=== PATIENT | male | born 1945 | race Caucasian/White ===

== ENCOUNTER 2016-11-02 02:16 | Emergency (ER) | payer MEDICARE, OTHER ==
[~2016-11-02 02:16] MED LIST: ASPI-973 PO; ATOR10TA66 PO; CARV6.252 PO; CHOL200047 PO; CLOP75TA28 PO; ISOS60TA2 PO; MULT1CAP33 PO; NITR0.4T6 SL; RANI75TA21 PO; SALM1CAP4 PO
[2016-11-02 02:20] VITALS: BP 184/87; PULSE 80; RESP 20; O2SAT 95
[2016-11-02] MEDS ORDERED: Albuterol-Ipratropium 3 mL Inhalation Solution ONE (02:30)
[2016-11-02 02:34] VITALS: PULSE 71; RESP 14; O2SAT 94
--- NOTE | 2016-11-02 02:38 | ED.REPORT ---
HPI-General Illness Date of Service Nov 02, 2016 ED Provider: Fritz Noble MD The pt is a 71 y/o male w/ a hx of CAD and seizures presenting to the ED complaining of increasing SOB. He is unable to lay flat and is also experiencing a cough and pleuritic "soreness". He reports his symptoms beginning with a severe cold in March, being given penicillin which helped after 3 days, but then his symptoms returning after 3 weeks. Nursing Notes Stated Complaint: TROUBLE BREATHING Chief Complaint: Respiratory Distress Nursing Notes Reviewed: Yes Allergies: Coded Allergies: morphine (Verified Allergy, Mild, 04/07/15) niacin (Verified Adverse Reaction, Mild, 04/07/15) EXTREME FLUSHING Uncoded Allergies: STATINS (Adverse Reaction, Mild, 09/11/11) MUSCLE PAIN Scheduled Aspirin (Aspirin) 81 Mg Tablet 162 MG PO QAM Atorvastatin Calcium (Atorvastatin Calcium) 10 Mg Tablet 10 MG PO HS Beclomethasone Dipropionate (Qvar) 8.7 Gm Aer.w.adap 1 PUFF INHALATION BID Carvedilol (Carvedilol) 6.25 Mg Tablet 6.25 MG PO BID Cholecalciferol (Vitamin D3) (Vitamin D3) 2,000 Unit Capsule 2,000 UNIT PO QAM Clopidogrel (Clopidogrel) 75 Mg Tablet 75 MG PO DAILY Fluticasone Furoate (Flonase Sensimist) 27.5 Mcg/Actuation [place].susp 9.9 ML NS BID Isosorbide MN ER (Isosorbide MN ER) 60 Mg Tab.er.24h 60 MG PO QAM Multivitamin (Multivitamins) 1 Each Capsule 1 EACH PO QAM Prednisone (PredniSONE) 20 Mg Tablet 60 MG PO DAILY Ranitidine (Zantac OTC) 75 Mg Tablet 75 MG PO QAM Lincoln Oil/[place]-3 Fatty Acids (Lincoln Oil 1,000 mg Softgel) 1 Each Capsule 1 EACH PO QAM Scheduled PRN Benzonatate (Tessalon Perle) 100 Mg Capsule 200 MG PO TID PRN PRN For Cough Nitroglycerin SL (Nitroglycerin SL) 0.4 Mg Tab.subl 0.4 MG SL Q5MIN PRN PRN CHEST PAIN General Time Seen by MD: 02:37 Chief Complaint Breathing problem (SOB) Hx Obtained From: Patient Arrived By: Walk-in Sudden in Onset?: Yes Onset Occurred: Just prior to arrival Symptom Duration: Since onset Recent Healthcare: No recent doctor visit, No recent hospitalization Similar Sx Previous: No Past Medical History Past Medical History CAD Seizures Past Surgical History Single bypass surgery in 1988 Smoking History Former Smoker Social History Other Social History: Good social support Ambulatory Status Independent Review of Systems Full Review of Systems Respiratory: Reports: Non-productive cough, Pleuritic pain ("soreness" ), Shortness of breath Complete sys rev & neg: except as marked. Physical Exam Vital Signs Vital Signs Date Time Temp Pulse Resp B/P Pulse Ox O2 Delivery O2 Flow Rate FiO2 11/02/16 06:15 36.7 96 25 166/73 93 Room Air 11/02/16 05:51 96 25 166/73 93 Room Air 11/02/16 05:15 36.7 78 20 156/81 97 Room Air 11/02/16 02:44 76 20 95 Room Air 11/02/16 02:34 71 14 94 Room Air 11/02/16 02:20 36.7 80 20 184/87 95 Room Air Initial VS: Reviewed General/Constitutional: Well-developed, Well-nourished Head / Eyes: Atraumatic, Normocephalic, PERRL ENT: Mucous membranes moist, Conjunctiva normal, No scleral icterus Neck: Supple, Non-tender, Full range of motion Cardiovascular: Regular rate & rhythm, Heart sounds normal, Intact distal pulses Abdomen / GI: Soft, Non-tender Extremities: Vascular intact, Neuro intact, No swelling, No tenderness Skin: Warm, Dry, No cyanosis Neurologic: Alert, Oriented, Nonfocal Psychiatric: Mood/affect normal, Behavior normal, Normal thought content Respiratory / Chest: No respiratory distress Wheezing w/ inspiration and expiration Midline scar Interpretation & Diagnostics Lab Results Interpretation Result Diagram: 11/02/16 0300 11/02/16 0300 Test 11/02/16 03:00 11/02/16 03:10 White Blood Count 8.6th/mm3 (3.8-10.1) Red Blood Count 5.21mil/mm3 (4.40-5.80) Hemoglobin 15.9g/dL (13.8-17.2) Hematocrit 47.7% (41.0-50.0) Mean Corpuscular Volume 91.6fL (81-100) Mean Corpuscular Hemoglobin 30.5pg (27.0-35.0) Mean Corpuscular Hemoglobin Concent 33.3% (32.0-37.0) Red Cell Distribution Width 13.4% (12.3-15.4) Platelet Count 211bil/L (150-400) Neutrophils (%) (Auto) 33.6% (40-74) Lymphocytes (%) (Auto) 46.1% (14-46) Monocytes (%) (Auto) 8.7% (4-12) Eosinophils (%) (Auto) 10.7% (0-5) Basophils (%) (Auto) 0.6% (0-3) Prothrombin Time 10.0sec (8.1-12.5) Prothromb Time International Ratio 0.94ratio Activated Partial Thromboplast Time 26.1sec (22.8-33.0) Sodium Level 139mEq/L (134-144) Potassium Level 4.5mEq/L (3.5-5.2) Chloride Level 97mEq/L (97-108) Carbon Dioxide Level 27mmol/L (18-29) Blood Urea Nitrogen 15mg/dL (8-27) Creatinine 0.88mg/dL (0.76-1.27) Estimat Glomerular Filtration Rate 91mL/min (>59) Glucose Level 111mg/dL (60-99) Calcium Level 9.6mg/dL (8.5-10.1) Magnesium Level 2.1mg/dL (1.6-2.6) Total Bilirubin 0.4mg/dL (0.0-1.2) Aspartate Amino Transf (AST/SGOT) 34U/L (0-50) Alanine Aminotransferase (ALT/SGPT) 37U/L (0-44) Alkaline Phosphatase 91U/L (25-160) Troponin T 0.010ug/L (0.0-0.011) Pro-B-Type Natriuretic Peptide 11pg/mL (0-376) Total Protein 7.2g/dL (6.4-8.4) Albumin 4.4g/dL (3.4-5.0) Procalcitonin 0.05ng/mL (0.00-0.08) Hold Aquino Top Tube Received (Received) ECG Interpretation ECG Interpretation: Rate 75 NSR Consider inferior infarct Borderline ST elevation, anterior leads Non-acute Time: 02:54 Interpreted by: ED physician X-Ray Chest Interpretation Chest Xray Interpretation: Impression: No acute findings View: Portable, 1 view Interpretation / Wet Read by: Deven coello ED physician Re-Eval/Medical Decision Med Decision/Clinical Course 71-year-old with chronic coughing evaluated at [facility] soon. He is grossly bronchospastic here, with contributors appearing to be postnasal drip and some reflux at issue. He is much improved after nebs and steroids here. No indication for antibiotics at present. Provided with prednisone for seven days, with Qvar to follow. Fluticasone nasal spray. Continue other meds. Dust mite prevention discussed. Follow up with PCP and with pulmonology specialty evaluation as planned. Time of Eval: 05:03 Re-Evaluation/Progress Note: Pt rechecked. Informed pt of plan for treatment. Pt understands and agrees with plan for treatment. F/U instructions and RTER warnings given. All questions addressed. Counseled Regarding: Diagnosis, Lab results, Need for follow-up, When/why to return to ED Discharge & Departure Primary Impression: Reactive airway disease Asthma severity: moderate persistent Asthma complication type: with acute exacerbation Qualified Code: J45.41 - Moderate persistent asthma with (acute) exacerbation Additional Impressions: Allergic rhinitis Allergic rhinitis trigger: unspecified Allergic rhinitis seasonality: unspecified seasonality Qualified Code: J30.9 - Allergic rhinitis, unspecified Chronic cough Disposition: Home Discharge Condition All VS Reviewed: Yes Condition: Stable Referrals: Jennifer Garcia DO (PCP) [place] Att[facility] Portions of this note were transcribed by Yves Block. I, Dr. Noble personally performed the history, physical exam and medical decision-making; I reviewed and confirmed the accuracy of the information in the transcribed note. Signed by : Shawnee Bowman, 11/02/16 and 0928. copies to: Jennifer Garcia Christopher W MD Nov 02, 2016 02:37 Yves Block Nov 02, 2016 04:49
[2016-11-02] MEDS ORDERED: Albuterol 2.5 mg/3 mL Inhalation Solution NEB ONE ×3 (02:42→04:35)
[2016-11-02 02:44] VITALS: PULSE 76; RESP 20; O2SAT 95
[2016-11-02] MEDS ORDERED: Dexamethasone 10 mg/mL Inj IVPUSH ONE (02:45)
[2016-11-02 03:17] LABS: BASOPHILS % (AUTO) 0.6 % (0-3); EOSINOPHILS % (AUTO) 10.7 % (0-5); MONOCYTES % (AUTO) 8.7 % (4-12); Mean Corpuscular Hemoglobin 30.5 pg (27.0-35.0); Mean Corpuscular Volume 91.6 fL (81-100); NEUTROPHILS % (AUTO) 33.6 % (40-74); Platelet Count 211 bil/L (150-400)
[2016-11-02 03:31] LABS: INR 0.94 ratio
[2016-11-02 03:43] LABS: TROPONIN T 0.01 ug/L (0.0-0.011)
[2016-11-02 03:44] LABS: Magnesium 2.1 mg/dL (1.6-2.6)
[2016-11-02 05:15] VITALS: BP 156/81; PULSE 78; RESP 20; O2SAT 97
[2016-11-02 05:51] VITALS: BP 166/73; PULSE 96; RESP 25; O2SAT 93
[2016-11-02] MEDS ORDERED: FLUT9.9S16 NS (05:56)
[2016-11-02] MEDS ORDERED: PRE20 PO (05:56)
[2016-11-02] MEDS ORDERED: BECL8.7A5 INHALATION (05:57)
[2016-11-02] MEDS ORDERED: BENZ-12 PO (05:59)
[2016-11-02 06:15] VITALS: BP 166/73; PULSE 96; RESP 25; O2SAT 93
--- NOTE | 2016-11-02 09:26 | DRSVH ---
PROCEDURE: X-RAY CHEST, TWO VIEWS ([id number]) INDICATIONS: cough TECHNIQUE: 2 views of the chest were acquired. COMPARISON: [facility], , CHEST 2 VIEW, 09/04/2016, 10:52. FINDINGS: Surgical changes and devices: Benedict rods for scoliosis convex to the right are present and uncha nged extending to the lumbar spine sternotomy wires are present. radiation monitor leads are seen over the chest. Lungs and pleura: No pleural effusions or pneumothorax. Lungs are clear. Mediastinum: Mediastinal contours are normal. Heart size is normal. Bones and chest wall: No suspicious bony abnormalities. Soft tissues appear unremarkable. IMPRESSION: Acute disease is not seen in the two-view chest. Cause of cough is not identified. Dictated by: Leonel Sharma M.D. on 11/02/2016 at 9:22 Approved by: Leonel Sharma M.D. on 11/02/2016 at 9:23
== END 2016-11-02 06:15 | disposition home or self-care (01) ==
LOC: SED 02:16
DX: J45.41 Moderate persistent asthma with (acute) exacerbation (principal); J30.9 Allergic rhinitis, unspecified; I25.10 Atherosclerotic heart disease of native coronary artery without angina pectoris; Z87.891 Personal history of nicotine dependence; Z79.82 Long term (current) use of aspirin; Z88.5 Allergy status to narcotic agent; Z88.8 Allergy status to other drugs, medicaments and biological substances
CPT/HCPCS: 36415; 71020; 80053; 83735; 83880; 84145; 84484; 85025; 85610; 85730; 87633; 93005; 94640; 94664; 96374; 99285; J1100; J7613; J7620